=== PATIENT | female | born 1975 | race African-American/Black ===

== ENCOUNTER 2018-06-19 04:40 | Inpatient (IN) | payer MEDICARE, OTHER ==
[~2018-06-19] VITALS: Ht 160 cm; Wt 67.6 kg
[~2018-06-19 04:40] MED LIST: DIVA125T32 PO; PAXIL PO; TRAZODONE PO
[2018-06-19 05:33] LABS: BASOPHILS % (AUTO) 1.4 % (0.0-2.0); EOSINOPHILS % (AUTO) 2.1 % (1.0-6.0); HEMOGLOBIN 14.3 g/dL (12.0-16.0); LYMPHOCYTES % (AUTO) 34.1 % (22.0-44.0); MEAN CORPUSCULAR HEMOGLOBIN 31.3 pg (26.0-34.0); MEAN CORPUSCULAR VOLUME 92 fL (80-100); MONOCYTES # (AUTO) 0.9 K/uL (0.1-1.0); MONOCYTES % (AUTO) 15.5 % (2.0-9.0); NEUTROPHILS # (AUTO) 2.7 K/uL (1.8-7.7); NEUTROPHILS % (AUTO) 46.9 % (40.0-70.0); PLATELET COUNT (AUTO) 333 K/uL (150-450); RED BLOOD CELL COUNT(AUTO) 4.57 MIL/uL (4.00-5.20)
[2018-06-19 05:51] LABS: ANION GAP 3 mmol/L (8-16); CALCIUM, TOTAL 8.4 mg/dL (8.8-10.5); CARBON DIOXIDE 31 mmol/L (22-29); CHLORIDE 106 mmol/L (98-107); CREATININE 1.02 mg/dL (0.60-1.30); GLOMERULAR FILTR. RATE CALC > 60 mL/min (>60); GLUCOSE,RANDOM 82 mg/dL (70-110); POTASSIUM 3.6 mmol/L (3.5-5.1); SODIUM SERUM 140 mmol/L (136-145); UREA NITROGEN, BLOOD 8 mg/dL (7-18)
[2018-06-19 05:55] LABS: ALANINE AMINOTRANSFERASE 17 U/L (12-78); ALBUMIN 3.1 g/dL (3.4-5.0); ALKALINE PHOSPHATASE 86 U/L (46-116); ASPARTATE AMINOTRANSFERASE 16 U/L (15-37); BILIRUBIN,TOTAL 0.3 mg/dL (0.1-1.0); TOTAL PROTEIN, SERUM 6.7 g/dL (6.4-8.2)
[2018-06-19] MEDS ORDERED: ZOLPIDEM TARTRATE 10 MG TABLET PO PRN (06:15)
[2018-06-19] MEDS ORDERED: LORazepam 2 MG TABLET PO PRN (06:15)
[2018-06-19] MEDS ORDERED: HALOPERIDOL 5 MG TABLET PO PRN (06:15)
[2018-06-19 06:45] LABS: HEMOGLOBIN A1C 5.3 % (4.5-6.2)
[2018-06-19 06:58] LABS: CHOL/HDL RATIO 2.9 (3.9-5.7); CHOLESTEROL 166 mg/dL (131-200); FREE T4 (FREE THYROXINE) 1.13 ng/dL (0.76-1.46); HDL CHOLESTEROL 58 mg/dL (40-60); LDL CHOL (CALC.) 95 mg/dL (0-130); THYROID STIMULATING HORMONE 1.47 uIU/mL (0.36-3.74); TRIGLYCERIDES 65 mg/dL (15-150)
[2018-06-19 07:49] LABS: HCG,QUANTITATIVE < 1 mIU/mL (0-6)
[2018-06-19] MEDS ORDERED: MAG HYDROX/AL HYDROX/SIMETH ES 30 ML SUSPENSION UDCUP PO PRN (10:15)
[2018-06-19] MEDS ORDERED: PETROLATUM,WHITE 71 GM JELLY TP PRN (10:15)
[2018-06-19] MEDS ORDERED: LOPERAMIDE HCL 2 MG CAPSULE PO PRN (10:15)
[2018-06-19] MEDS ORDERED: ACETAMINOPHEN 325 MG TABLET PO PRN (10:15)
[2018-06-19] MEDS ORDERED: MAGNESIUM HYDROXIDE SUSPENSION 30 ML UDCUP PO PRN (10:15)
[2018-06-19] MEDS ORDERED: DOCUSATE SODIUM 100 MG CAPSULE PO PRN (10:15)
[2018-06-19] MEDS ORDERED: IBUPROFEN 400 MG TABLET PO PRN (10:15)
[2018-06-19 13:00] VITALS: BP 104/68
[2018-06-19 16:05] VITALS: BP 124/80
[2018-06-19] MEDS: DIVALPROEX SODIUM 500 MG DR TABLET PO SCH (16:33)
[2018-06-19] MEDS: TraZODone HCL 150 MG TABLET PO SCH (20:30)
[2018-06-20 03:20] VITALS: BP 120/81
[2018-06-20 08:30] VITALS: BP 122/61
[2018-06-20] MEDS: DIVALPROEX SODIUM 500 MG DR TABLET PO SCH ×2 (08:38→16:39)
[2018-06-20] MEDS: PARoxetine HCL 20 MG TABLET PO SCH (08:38)
[2018-06-20 16:12] VITALS: BP 118/81
[2018-06-20] MEDS: TraZODone HCL 150 MG TABLET PO SCH (20:30)
[2018-06-21 01:06] VITALS: BP 102/63
[2018-06-21 07:53] VITALS: BP 109/68
[2018-06-21] MEDS: DIVALPROEX SODIUM 500 MG DR TABLET PO SCH ×2 (08:18→16:34)
[2018-06-21] MEDS: PARoxetine HCL 20 MG TABLET PO SCH (08:18)
[2018-06-21 09:20] VITALS: BP 109/68
[2018-06-21 16:00] VITALS: BP 114/63
[2018-06-21] MEDS: TraZODone HCL 150 MG TABLET PO SCH (20:42)
[2018-06-22 01:55] VITALS: BP 118/68
[2018-06-22 08:21] VITALS: BP 117/77
[2018-06-22] MEDS: DIVALPROEX SODIUM 500 MG DR TABLET PO SCH ×3 (08:39→17:10)
[2018-06-22] MEDS: PARoxetine HCL 20 MG TABLET PO SCH (08:39)
[2018-06-22 16:30] VITALS: BP 110/64
[2018-06-22] MEDS: TraZODone HCL 150 MG TABLET PO SCH (21:18)
[2018-06-22] MEDS: OLANZapine 5 MG TABLET PO SCH (21:19)
[2018-06-23 01:16] VITALS: BP 111/77
[2018-06-23 08:13] VITALS: BP 120/68
[2018-06-23] MEDS: DIVALPROEX SODIUM 500 MG DR TABLET PO SCH ×2 (08:45→16:34)
[2018-06-23] MEDS: PARoxetine HCL 20 MG TABLET PO SCH (08:45)
[2018-06-23] MEDS: OLANZapine 5 MG TABLET PO SCH ×2 (08:45→20:37)
[2018-06-23 16:30] VITALS: BP 110/58
[2018-06-23] MEDS: TraZODone HCL 150 MG TABLET PO SCH (20:37)
[2018-06-24 08:11] VITALS: BP 110/62
[2018-06-24] MEDS: PARoxetine HCL 20 MG TABLET PO SCH (08:14)
[2018-06-24] MEDS: OLANZapine 5 MG TABLET PO SCH ×2 (08:14→20:39)
[2018-06-24] MEDS: DIVALPROEX SODIUM 500 MG DR TABLET PO SCH ×2 (08:14→16:38)
[2018-06-24 16:31] VITALS: BP 116/76
[2018-06-24] MEDS: TraZODone HCL 150 MG TABLET PO SCH (20:39)
[2018-06-25 00:12] VITALS: BP 102/71
[2018-06-25 08:34] VITALS: BP 104/66
[2018-06-25] MEDS: OLANZapine 5 MG TABLET PO SCH ×2 (08:42→20:16)
[2018-06-25] MEDS: PARoxetine HCL 20 MG TABLET PO SCH (08:42)
[2018-06-25] MEDS: DIVALPROEX SODIUM 500 MG DR TABLET PO SCH ×2 (08:42→16:47)
[2018-06-25 16:35] VITALS: BP 107/69
[2018-06-25] MEDS: TraZODone HCL 150 MG TABLET PO SCH (20:16)
[2018-06-26 02:00] VITALS: BP 113/74
[2018-06-26 08:36] VITALS: BP 106/69
[2018-06-26] MEDS: DIVALPROEX SODIUM 500 MG DR TABLET PO SCH ×2 (08:42→16:38)
[2018-06-26] MEDS: OLANZapine 5 MG TABLET PO SCH ×2 (08:42→20:24)
[2018-06-26] MEDS: PARoxetine HCL 20 MG TABLET PO SCH (08:42)
[2018-06-26 16:00] VITALS: BP 112/67
[2018-06-26] MEDS: TraZODone HCL 150 MG TABLET PO SCH (20:24)
[2018-06-27 02:28] VITALS: BP 114/72
[2018-06-27 08:23] VITALS: BP 114/66
[2018-06-27] MEDS: OLANZapine 5 MG TABLET PO SCH (08:38)
[2018-06-27] MEDS: DIVALPROEX SODIUM 500 MG DR TABLET PO SCH (08:38)
[2018-06-27] MEDS: PARoxetine HCL 20 MG TABLET PO SCH (08:38)
[2018-06-27] MEDS ORDERED: DIVA250T4 PO (09:03)
[2018-06-27] MEDS ORDERED: TRAZ-220 PO (09:05)
[2018-06-27] MEDS ORDERED: PARO20TA24 PO (09:06)
[2018-06-27] MEDS ORDERED: OLAN5TAB2 PO (09:06)
== END 2018-06-27 10:50 | disposition home or self-care (01) | DRG 885 ==
LOC: EMS 04:41 → B2X 06:00
PROVIDERS: ADMIT Psychiatry & Neurology Child & Adolescent Psychiatry; ATTEND Psychiatry & Neurology Child & Adolescent Psychiatry
DX: F33.1 Major depressive disorder, recurrent, moderate (principal); R45.851 Suicidal ideations; E83.51 Hypocalcemia; F10.10 Alcohol abuse, uncomplicated; F14.90 Cocaine use, unspecified, uncomplicated; F15.90 Other stimulant use, unspecified, uncomplicated; G47.00 Insomnia, unspecified; K21.9 Gastro-esophageal reflux disease without esophagitis; F20.9 Schizophrenia, unspecified; F41.9 Anxiety disorder, unspecified; Z59.0 Homelessness; Z79.899 Other long term (current) drug therapy; Z87.891 Personal history of nicotine dependence
CPT/HCPCS: 83036; 84439; 84443; G0480

== ENCOUNTER 2019-05-29 19:49 | Emergency (ER) | payer MEDICARE, OTHER ==
[~2019-05-29] VITALS: Ht 160 cm; Wt 86.4 kg
[~2019-05-29 19:49] MED LIST changes: -DIVA125T32 PO; +DIVA250T4 PO; +OLAN5TAB2 PO; +PARO20TA24 PO; -PAXIL PO; +TRAZ-220 PO; -TRAZODONE PO
[2019-05-30 02:00] VITALS: BP 110/78
== END 2019-05-30 02:30 | disposition home or self-care (01) ==
LOC: EMS 19:51
DX: B34.9 Viral infection, unspecified (principal); G93.3 Postviral and related fatigue syndromes; F31.9 Bipolar disorder, unspecified; F20.9 Schizophrenia, unspecified; F17.210 Nicotine dependence, cigarettes, uncomplicated; F12.90 Cannabis use, unspecified, uncomplicated; F14.90 Cocaine use, unspecified, uncomplicated
CPT/HCPCS: 99406

== ENCOUNTER 2019-11-05 01:51 | Inpatient (IN) | payer MEDICAID, MEDICARE, OTHER ==
[~2019-11-05] VITALS: Ht 160 cm; Wt 61.5 kg
[~2019-11-05 01:51] MED LIST changes: -TRAZ-220 PO; +TRAZ-257 PO
[2019-11-05] MEDS ORDERED: ZIPR40CA2 PO (01:58)
[2019-11-05] MEDS ORDERED: HALOPERIDOL 5 MG TABLET PO PRN (04:15)
[2019-11-05] MEDS ORDERED: LORazepam 2 MG TABLET PO PRN (04:15)
[2019-11-05] MEDS ORDERED: ZOLPIDEM TARTRATE 10 MG TABLET PO PRN (04:15)
[2019-11-05 06:17] VITALS: BP 107/61
[2019-11-05] MEDS ORDERED: MAG HYDROX/AL HYDROX/SIMETH ES 30 ML SUSPENSION UDCUP PO PRN (08:15)
[2019-11-05] MEDS ORDERED: DOCUSATE SODIUM 100 MG CAPSULE PO PRN (08:15)
[2019-11-05] MEDS ORDERED: ACETAMINOPHEN 325 MG TABLET PO PRN (08:15)
[2019-11-05] MEDS ORDERED: ALBUTEROL SULFATE HFA 90 MCG/PUFF 8 GM INHALER IH PRN (08:15)
[2019-11-05] MEDS ORDERED: ONDANSETRON HCL 4 MG TABLET PO PRN (08:15)
[2019-11-05] MEDS ORDERED: MAGNESIUM HYDROXIDE SUSPENSION 30 ML UDCUP PO PRN (08:15)
[2019-11-05] MEDS ORDERED: IBUPROFEN 400 MG TABLET PO PRN (08:15)
[2019-11-05] MEDS ORDERED: PETROLATUM,WHITE 28 GM JELLY TP PRN (08:15)
[2019-11-05] MEDS ORDERED: CloNIDine HCL 0.1 MG TABLET PO PRN (08:15)
[2019-11-05] MEDS ORDERED: LOPERAMIDE HCL 2 MG CAPSULE PO PRN (08:15)
[2019-11-05] MEDS ORDERED: NICOTINE 14 MG/24 HOUR PATCH TD PRN (08:15)
[2019-11-05] MEDS ORDERED: GuaiFENesin/D-METHORPHAN [SUGAR-FREE] 200-20MG/10 ML SYRUP UDCUP PO PRN (08:15)
[2019-11-05 08:31] VITALS: BP 105/54
[2019-11-05] MEDS ORDERED: DIVA-78 PO (14:10)
[2019-11-05] MEDS ORDERED: TRAZ150 PO (14:10)
[2019-11-05 16:39] VITALS: BP 107/51
[2019-11-05] MEDS: DIVALPROEX SODIUM 500 MG DR TABLET PO SCH (16:40)
[2019-11-05] MEDS: OLANZapine 5 MG TABLET PO SCH (16:40)
[2019-11-06 08:15] VITALS: BP 137/94
[2019-11-06] MEDS: OLANZapine 5 MG TABLET PO SCH ×2 (09:30→16:14)
[2019-11-06] MEDS: DIVALPROEX SODIUM 500 MG DR TABLET PO SCH ×2 (09:30→16:14)
[2019-11-06] MEDS: BuPROPion HCL XL 150 MG ER TABLET PO SCH (09:30)
[2019-11-06 17:18] VITALS: BP 98/67
[2019-11-07] MEDS: DIVALPROEX SODIUM 500 MG DR TABLET PO SCH ×2 (08:45→16:03)
[2019-11-07] MEDS: BuPROPion HCL XL 150 MG ER TABLET PO SCH (08:45)
[2019-11-07] MEDS: OLANZapine 5 MG TABLET PO SCH ×2 (08:45→16:03)
[2019-11-07 08:52] VITALS: BP 129/69
[2019-11-07 16:00] VITALS: BP 135/63
[2019-11-08 09:00] VITALS: BP 117/77
[2019-11-08] MEDS: BuPROPion HCL XL 150 MG ER TABLET PO SCH (09:30)
[2019-11-08] MEDS: DIVALPROEX SODIUM 500 MG DR TABLET PO SCH ×2 (09:30→16:13)
[2019-11-08] MEDS: OLANZapine 5 MG TABLET PO SCH ×2 (09:30→16:13)
[2019-11-08] MEDS ORDERED: BUPR75 PO (16:35)
== END 2019-11-08 18:00 | disposition home or self-care (01) | DRG 885 ==
LOC: EMS 01:53 → 3EI 04:05
PROVIDERS: ADMIT Psychiatry & Neurology Child & Adolescent Psychiatry; ATTEND Psychiatry & Neurology Child & Adolescent Psychiatry
DX: F20.9 Schizophrenia, unspecified (principal); R45.851 Suicidal ideations; F17.200 Nicotine dependence, unspecified, uncomplicated; F14.90 Cocaine use, unspecified, uncomplicated; F12.90 Cannabis use, unspecified, uncomplicated; F10.10 Alcohol abuse, uncomplicated; I95.9 Hypotension, unspecified; Z79.899 Other long term (current) drug therapy

== ENCOUNTER 2021-06-01 19:33 | Emergency (ER) | payer MEDICAID, OTHER ==
[~2021-06-01] VITALS: Ht 160 cm; Wt 81.8 kg
[~2021-06-01 19:33] MED LIST changes: +BUPR75 PO; +DIVA-112 PO; -DIVA250T4 PO; -OLAN5TAB2 PO; +OLAN5TAB52 PO; -PARO20TA24 PO; -TRAZ-257 PO
[2021-06-01] MEDS ORDERED: BUPR-93 PO (19:52)
[2021-06-01 21:51] LABS: BASOPHILS % (AUTO) 1.3 % (0.0-2.0); EOSINOPHILS % (AUTO) 2.1 % (1.0-6.0); HEMATOCRIT 39.7 % (36-46); HEMOGLOBIN 13.8 g/dL (12.0-16.0); LYMPHOCYTES # (AUTO) 1.4 K/uL (1.0-4.8); LYMPHOCYTES % (AUTO) 32.2 % (22.0-44.0); MEAN CORPUSCULAR HEMOGLOBIN 29.7 pg (26.0-34.0); MEAN CORPUSCULAR HGB CONC 34.8 G/dL (31.0-37.0); MEAN CORPUSCULAR VOLUME 85 fL (80-100); MONOCYTES # (AUTO) 0.6 K/uL (0.1-1.0); MONOCYTES % (AUTO) 13.7 % (2.0-9.0); NEUTROPHILS # (AUTO) 2.2 K/uL (1.8-7.7); NEUTROPHILS % (AUTO) 50.7 % (40.0-70.0); PLATELET COUNT (AUTO) 232 K/uL (150-450); RED BLOOD CELL COUNT(AUTO) 4.65 MIL/uL (4.00-5.20); RED CELL DISTRIBUTION WIDTH 14.7 % (11.5-14.5)
[2021-06-01 21:59] LABS: ANION GAP 10 mmol/L (8-16); CARBON DIOXIDE 29 mmol/L (22-29); CHLORIDE 105 mmol/L (98-107); CREATININE 1.03 mg/dL (0.60-1.30); GLOMERULAR FILTR. RATE CALC > 60 mL/min (>60); GLUCOSE,RANDOM 113 mg/dL (70-110); POTASSIUM 3.5 mmol/L (3.5-5.1); SODIUM SERUM 144 mmol/L (136-145); UREA NITROGEN, BLOOD 8 mg/dL (7-18)
[2021-06-01 22:05] LABS: ALANINE AMINOTRANSFERASE 14 U/L (12-78); ALBUMIN 2.9 g/dL (3.4-5.0); ALKALINE PHOSPHATASE 96 U/L (46-116); ASPARTATE AMINOTRANSFERASE 16 U/L (15-37); BILIRUBIN,TOTAL 0.1 mg/dL (0.1-1.0); TOTAL PROTEIN, SERUM 6.2 g/dL (6.4-8.2)
[2021-06-01 22:39] LABS: COVID AG,FIA SOURCE NASOPHARYNGEAL
[2021-06-01] MEDS ORDERED: ACETAMINOPHEN 500 MG TABLET PO ONE (23:45)
[2021-06-02 12:22] VITALS: BP 126/88
== END 2021-06-02 17:08 | disposition home or self-care (01) ==
LOC: EMS 19:34
DX: U07.1 COVID-19 (principal); F14.10 Cocaine abuse, uncomplicated; F32.9 Major depressive disorder, single episode, unspecified; F12.90 Cannabis use, unspecified, uncomplicated; F20.9 Schizophrenia, unspecified; Z59.00 Homelessness unspecified; Z87.891 Personal history of nicotine dependence
CPT/HCPCS: 36415; 80053; 84703; 85025; 87426; 93005; 99285; G0480; 99284

== ENCOUNTER 2021-06-25 07:18 | Inpatient (IN) | payer MEDICAID, OTHER ==
[~2021-06-25] VITALS: Ht 312.4 cm; Wt 79.4 kg
[~2021-06-25 07:18] MED LIST changes: +BUPR-93 PO; -BUPR75 PO
[2021-06-25 08:09] LABS: BASOPHILS % (AUTO) 0.8 % (0.0-2.0); EOSINOPHILS % (AUTO) 1.8 % (1.0-6.0); HEMATOCRIT 41.7 % (36-46); HEMOGLOBIN 14.3 g/dL (12.0-16.0); LYMPHOCYTES # (AUTO) 1.5 K/uL (1.0-4.8); LYMPHOCYTES % (AUTO) 27.6 % (22.0-44.0); MEAN CORPUSCULAR HEMOGLOBIN 29.9 pg (26.0-34.0); MEAN CORPUSCULAR HGB CONC 34.3 G/dL (31.0-37.0); MEAN CORPUSCULAR VOLUME 87 fL (80-100); MONOCYTES # (AUTO) 0.9 K/uL (0.1-1.0); MONOCYTES % (AUTO) 16.5 % (2.0-9.0); NEUTROPHILS # (AUTO) 2.8 K/uL (1.8-7.7); NEUTROPHILS % (AUTO) 53.3 % (40.0-70.0); PLATELET COUNT (AUTO) 279 K/uL (150-450); RED BLOOD CELL COUNT(AUTO) 4.79 MIL/uL (4.00-5.20); RED CELL DISTRIBUTION WIDTH 14.9 % (11.5-14.5)
[2021-06-25 08:17] LABS: AMPHET/METH SCREEN,URINE NEGATIVE (NEGATIVE); BARBITURATE SCREEN, URINE NEGATIVE (NEGATIVE); BENZODIAZEPINES SCREEN,URINE NEGATIVE (NEGATIVE); CANNABINOID SCREEN,URINE POSITIVE (NEGATIVE); COCAINE SCREEN,URINE POSITIVE (NEGATIVE); METHADONE SCREEN, URINE NEGATIVE (NEGATIVE); OPIATE SCREEN,URINE NEGATIVE (NEGATIVE)
[2021-06-25 08:29] LABS: ANION GAP 8 mmol/L (8-16); CALCIUM, TOTAL 8.4 mg/dL (8.8-10.5); CARBON DIOXIDE 29 mmol/L (22-29); CHLORIDE 106 mmol/L (98-107); CREATININE 0.95 mg/dL (0.60-1.30); GLOMERULAR FILTR. RATE CALC > 60 mL/min (>60); GLUCOSE,RANDOM 90 mg/dL (70-110); POTASSIUM 3.7 mmol/L (3.5-5.1); SODIUM SERUM 143 mmol/L (136-145); UREA NITROGEN, BLOOD 7 mg/dL (7-18)
[2021-06-25 08:34] LABS: ALANINE AMINOTRANSFERASE 16 U/L (12-78); ALBUMIN 3.1 g/dL (3.4-5.0); ALKALINE PHOSPHATASE 99 U/L (46-116); ASPARTATE AMINOTRANSFERASE 15 U/L (15-37); BILIRUBIN,TOTAL 0.4 mg/dL (0.1-1.0); TOTAL PROTEIN, SERUM 6.8 g/dL (6.4-8.2)
[2021-06-25 08:39] LABS: VALPROIC ACID < 3 mcg/mL (50-100)
[2021-06-25 08:40] LABS: COVID AG,FIA SOURCE NASOPHARYNGEAL
[2021-06-25 08:41] LABS: PHENCYCLIDINE SCREEN,URINE NEGATIVE (NEGATIVE)
[2021-06-25] MEDS ORDERED: LORazepam 2 MG TABLET PO PRN (09:45)
[2021-06-25] MEDS ORDERED: ZOLPIDEM TARTRATE 10 MG TABLET PO PRN (09:45)
[2021-06-25] MEDS ORDERED: HALOPERIDOL 5 MG TABLET PO PRN (09:45)
[2021-06-25 16:19] VITALS: BP 116/71
[2021-06-26 05:28] VITALS: BP 130/79
[2021-06-26] MEDS ORDERED: BENZOCAINE/MENTHOL LOZENGE PO PRN (06:15)
[2021-06-26] MEDS ORDERED: ACETAMINOPHEN 325 MG TABLET PO PRN (06:15)
[2021-06-26] MEDS ORDERED: BACITRACIN 28 GM OINTMENT TP PRN (06:15)
[2021-06-26] MEDS ORDERED: CloNIDine HCL 0.1 MG TABLET PO PRN (06:15)
[2021-06-26] MEDS ORDERED: IBUPROFEN 600 MG TABLET PO PRN (06:15)
[2021-06-26] MEDS ORDERED: MAGNESIUM HYDROXIDE SUSPENSION 30 ML UDCUP PO PRN (06:15)
[2021-06-26] MEDS ORDERED: ALBUTEROL SULFATE HFA 90 MCG/PUFF 8 GM INHALER IH PRN (06:15)
[2021-06-26] MEDS ORDERED: PETROLATUM,WHITE 28 GM JELLY TP PRN (06:15)
[2021-06-26] MEDS ORDERED: MAG HYDROX/AL HYDROX/SIMETH ES 30 ML SUSPENSION UDCUP PO PRN (06:15)
[2021-06-26] MEDS ORDERED: ONDANSETRON HCL 4 MG TABLET PO PRN (06:15)
[2021-06-26] MEDS ORDERED: LOPERAMIDE HCL 2 MG CAPSULE PO PRN (06:15)
[2021-06-26] MEDS ORDERED: DOCUSATE SODIUM 100 MG CAPSULE PO PRN (06:15)
[2021-06-26] MEDS ORDERED: OMEPRAZOLE 20 MG CAPSULE PO PRN (06:15)
[2021-06-26 08:24] VITALS: BP 132/75
[2021-06-26] MEDS ORDERED: DIVALPROEX SODIUM 500 MG DR TABLET PO SCH (21:00)
[2021-06-27 05:30] VITALS: BP 131/77
[2021-06-27 08:19] VITALS: BP 109/72
[2021-06-27] MEDS ORDERED: BuPROPion HCL XL 150 MG ER TABLET PO SCH (09:00)
[2021-06-27] MEDS ORDERED: DIVA-112 PO (14:28)
[2021-06-27] MEDS ORDERED: BUPR-49 PO (14:28)
== END 2021-06-27 15:05 | disposition home or self-care (01) | DRG 750 ==
LOC: EMS 07:20 → B2S 10:41
PROVIDERS: ADMIT Psychiatry & Neurology Psychiatry; ATTEND Psychiatry & Neurology Psychiatry
DX: F25.9 Schizoaffective disorder, unspecified (principal); R45.851 Suicidal ideations; F32.9 Major depressive disorder, single episode, unspecified; F14.90 Cocaine use, unspecified, uncomplicated; Z20.822 Contact with and (suspected) exposure to COVID-19; F41.9 Anxiety disorder, unspecified; G47.00 Insomnia, unspecified; K59.00 Constipation, unspecified; F17.210 Nicotine dependence, cigarettes, uncomplicated; Z79.899 Other long term (current) drug therapy; Z72.89 Other problems related to lifestyle
CPT/HCPCS: 80053; 80061; 80164; 85025; 99285; G0480

== ENCOUNTER 2021-06-28 13:56 | Inpatient (IN) | payer MEDICAID, OTHER ==
[~2021-06-28] VITALS: Ht 160 cm; Wt 76.3 kg
[~2021-06-28 13:56] MED LIST changes: +BUPR-49 PO; -OLAN5TAB52 PO
[2021-06-28 21:34] LABS: BASOPHILS % (AUTO) 0.7 % (0.0-2.0); EOSINOPHILS % (AUTO) 2.9 % (1.0-6.0); HEMATOCRIT 44.4 % (36-46); HEMOGLOBIN 14.7 g/dL (12.0-16.0); LYMPHOCYTES % (AUTO) 46.1 % (22.0-44.0); MEAN CORPUSCULAR HEMOGLOBIN 28.7 pg (26.0-34.0); MEAN CORPUSCULAR HGB CONC 33.2 G/dL (31.0-37.0); MEAN CORPUSCULAR VOLUME 86 fL (80-100); MONOCYTES # (AUTO) 0.9 K/uL (0.1-1.0); MONOCYTES % (AUTO) 21.6 % (2.0-9.0); NEUTROPHILS # (AUTO) 1.2 K/uL (1.8-7.7); NEUTROPHILS % (AUTO) 28.7 % (40.0-70.0); PLATELET COUNT (AUTO) 270 K/uL (150-450); RED BLOOD CELL COUNT(AUTO) 5.14 MIL/uL (4.00-5.20); RED CELL DISTRIBUTION WIDTH 14.6 % (11.5-14.5)
[2021-06-28] MEDS ORDERED: HALOPERIDOL 5 MG TABLET PO PRN (21:45)
[2021-06-28] MEDS ORDERED: ZOLPIDEM TARTRATE 10 MG TABLET PO PRN (21:45)
[2021-06-28] MEDS ORDERED: LORazepam 2 MG TABLET PO PRN (21:45)
[2021-06-28 21:46] LABS: ANION GAP 6 mmol/L (8-16); CALCIUM, TOTAL 9.1 mg/dL (8.8-10.5); CARBON DIOXIDE 31 mmol/L (22-29); CHLORIDE 104 mmol/L (98-107); CREATININE 1.11 mg/dL (0.60-1.30); GLOMERULAR FILTR. RATE CALC > 60 mL/min (>60); GLUCOSE,RANDOM 91 mg/dL (70-110); POTASSIUM 3.4 mmol/L (3.5-5.1); SODIUM SERUM 141 mmol/L (136-145); UREA NITROGEN, BLOOD 8 mg/dL (7-18)
[2021-06-28 21:51] LABS: ALANINE AMINOTRANSFERASE 15 U/L (12-78); ALBUMIN 3.3 g/dL (3.4-5.0); ALKALINE PHOSPHATASE 108 U/L (46-116); ASPARTATE AMINOTRANSFERASE 14 U/L (15-37); BILIRUBIN,TOTAL 0.3 mg/dL (0.1-1.0); TOTAL PROTEIN, SERUM 6.8 g/dL (6.4-8.2)
[2021-06-28 22:47] LABS: COVID AG,FIA SOURCE NASAL SWAB
[2021-06-29 00:45] LABS: CHOL/HDL RATIO 4.1 (3.9-5.7); CHOLESTEROL 192 mg/dL (131-200); HDL CHOLESTEROL 47 mg/dL (40-60); LDL CHOL (CALC.) 130 mg/dL (0-130); TRIGLYCERIDES 77 mg/dL (15-150)
[2021-06-29 20:39] LABS: APPEARANCE,URINE TURBID (CLEAR); BILIRUBIN,URINE NEGATIVE (NEGATIVE); GLUCOSE, URINE (UA) NEGATIVE (NEGATIVE); KETONES,URINE NEGATIVE (NEGATIVE); LEUKOCYTE ESTERASE ,URINE NEGATIVE (NEGATIVE); NITRATE,URINE NEGATIVE (NEGATIVE); OCCULT BLOOD,URINE NEGATIVE (NEGATIVE); PROTEIN,URINE NEGATIVE (NEGATIVE)
[2021-06-29 20:45] LABS: AMPHET/METH SCREEN,URINE NEGATIVE (NEGATIVE); BARBITURATE SCREEN, URINE NEGATIVE (NEGATIVE); BENZODIAZEPINES SCREEN,URINE NEGATIVE (NEGATIVE); CANNABINOID SCREEN,URINE POSITIVE (NEGATIVE); COCAINE SCREEN,URINE POSITIVE (NEGATIVE); METHADONE SCREEN, URINE NEGATIVE (NEGATIVE); OPIATE SCREEN,URINE NEGATIVE (NEGATIVE); PHENCYCLIDINE SCREEN,URINE NEGATIVE (NEGATIVE)
[2021-06-29] MEDS ORDERED: INFLUENZA VIRUS VACCINE QVS 2021-22 (6MO+)/PF 60 MCG/0.5 ML SYRINGE IM. ONE (22:00)
[2021-06-29 22:06] VITALS: BP 108/75
[2021-06-29] MEDS ORDERED: DENTURE ADHESIVE 68 GM CREAM DT PRN (23:30)
[2021-06-29 23:53] VITALS: BP 98/60
[2021-06-30 08:12] VITALS: BP 101/59
[2021-06-30] MEDS: BuPROPion HCL XL 150 MG ER TABLET PO SCH (12:27)
[2021-06-30 16:18] VITALS: BP 112/58
[2021-06-30] MEDS: DIVALPROEX SODIUM 500 MG DR TABLET PO SCH (20:29)
[2021-07-01 06:00] VITALS: BP 102/64
[2021-07-01] MEDS ORDERED: ALBUTEROL SULFATE HFA 90 MCG/PUFF 8 GM INHALER IH PRN (07:00)
[2021-07-01] MEDS ORDERED: BENZOCAINE/MENTHOL LOZENGE PO PRN (07:00)
[2021-07-01] MEDS ORDERED: MAGNESIUM HYDROXIDE SUSPENSION 30 ML UDCUP PO PRN (07:00)
[2021-07-01] MEDS ORDERED: PETROLATUM,WHITE 28 GM JELLY TP PRN (07:00)
[2021-07-01] MEDS ORDERED: CloNIDine HCL 0.1 MG TABLET PO PRN (07:00)
[2021-07-01] MEDS ORDERED: ACETAMINOPHEN 325 MG TABLET PO PRN (07:00)
[2021-07-01] MEDS ORDERED: DOCUSATE SODIUM 100 MG CAPSULE PO PRN (07:00)
[2021-07-01] MEDS ORDERED: ONDANSETRON HCL 4 MG TABLET PO PRN (07:00)
[2021-07-01] MEDS ORDERED: POTASSIUM CHLORIDE 20 MEQ ER TABLET PO ONE (07:00)
[2021-07-01] MEDS ORDERED: LOPERAMIDE HCL 2 MG CAPSULE PO PRN (07:00)
[2021-07-01] MEDS ORDERED: IBUPROFEN 600 MG TABLET PO PRN (07:00)
[2021-07-01] MEDS ORDERED: OMEPRAZOLE 20 MG CAPSULE PO PRN (07:00)
[2021-07-01] MEDS ORDERED: BACITRACIN 28 GM OINTMENT TP PRN (07:00)
[2021-07-01] MEDS ORDERED: MAG HYDROX/AL HYDROX/SIMETH ES 30 ML SUSPENSION UDCUP PO PRN (07:00)
[2021-07-01] MEDS: BuPROPion HCL XL 150 MG ER TABLET PO SCH (08:33)
[2021-07-01 08:43] VITALS: BP 96/62
[2021-07-01 16:23] VITALS: BP 110/73
[2021-07-01] MEDS: DIVALPROEX SODIUM 500 MG DR TABLET PO SCH (20:38)
[2021-07-02 05:29] VITALS: BP 104/62
[2021-07-02] MEDS: BuPROPion HCL XL 150 MG ER TABLET PO SCH (08:53)
[2021-07-02 09:44] VITALS: BP 108/70
[2021-07-02] MEDS ORDERED: DIVA-112 PO (13:40)
[2021-07-02] MEDS ORDERED: BUPR-49 PO (13:40)
== END 2021-07-02 14:45 | disposition home or self-care (01) | DRG 753 ==
LOC: EMS 14:30 → B2X 06-29 19:57
PROVIDERS: ADMIT Psychiatry & Neurology Psychiatry; ATTEND Psychiatry & Neurology Psychiatry
DX: F31.9 Bipolar disorder, unspecified (principal); R45.851 Suicidal ideations; F41.9 Anxiety disorder, unspecified; G47.00 Insomnia, unspecified; K59.00 Constipation, unspecified; F10.10 Alcohol abuse, uncomplicated; Z20.822 Contact with and (suspected) exposure to COVID-19; Z71.6 Tobacco abuse counseling; Z59.00 Homelessness unspecified; Z72.0 Tobacco use
CPT/HCPCS: 80053; 80061; 81003; 84132; 85025; 87081; 99285; G0480

== ENCOUNTER 2022-01-15 12:23 | Emergency (ER) | payer MEDICAID, OTHER ==
[~2022-01-15] VITALS: Ht 162.6 cm; Wt 65.9 kg
[~2022-01-15 12:23] MED LIST changes: -BUPR-93 PO
[2022-01-15] MEDS ORDERED: HydrOXYzine PAMOATE 25 MG CAPSULE PO ONE (13:30)
[2022-01-15 14:00] VITALS: BP 119/63
[2022-01-15] MEDS ORDERED: HYDR-4527 PO (14:07)
== END 2022-01-15 14:41 | disposition home or self-care (01) ==
LOC: EMS 12:23
DX: S80.862A Insect bite (nonvenomous), left lower leg, initial encounter (principal); S80.861A Insect bite (nonvenomous), right lower leg, initial encounter; F31.9 Bipolar disorder, unspecified; F20.9 Schizophrenia, unspecified; F17.210 Nicotine dependence, cigarettes, uncomplicated; F14.90 Cocaine use, unspecified, uncomplicated; Z98.890 Other specified postprocedural states; Z91.011 Allergy to milk products; W57.XXXA Bitten or stung by nonvenomous insect and other nonvenomous arthropods, initial encounter; Y93.89 Activity, other specified; Y92.89 Other specified places as the place of occurrence of the external cause; Y99.8 Other external cause status
CPT/HCPCS: 99283

== ENCOUNTER 2023-09-27 20:01 | Emergency (ER) | payer OTHER ==
[~2023-09-27] VITALS: Ht 160 cm; Wt 63.6 kg
[~2023-09-27 20:01] MED LIST changes: +HYDR-4527 PO
[2023-09-27 20:14] VITALS: TEMP 98.3
[2023-09-27 20:42] LABS: COVID AG,FIA SOURCE NASAL SWAB
[2023-09-27 20:57] LABS: RAPID GROUP A STREP NEGATIVE (NEGATIVE)
[2023-09-27 21:00] VITALS: BP 120/72; PULSE 90; RESP 19
[2023-09-27 21:20] LABS: INFLUENZA TYPE A NEGATIVE FOR TYPE A (NEGATIVE); INFLUENZA TYPE B NEGATIVE FOR TYPE B (NEGATIVE); SARS-COV2 (COVID) ANTIGEN,FIA Negative (Negative)
[2023-09-27] MEDS ORDERED: CEPH-558 PO (23:49)
[2023-09-27] MEDS ORDERED: SULF-261 PO (23:49)
[2023-09-27] MEDS: LIDOCAINE/PF 1% 2 ML VIAL IM ONE (23:58)
[2023-09-27] MEDS: CefTRIAXone SODIUM 1 GM/VIAL IM ONE (23:58)
== END 2023-09-28 03:00 | disposition home or self-care (01) ==
LOC: EMS 20:01
DX: F41.9 Anxiety disorder, unspecified (principal); F20.9 Schizophrenia, unspecified; F17.210 Nicotine dependence, cigarettes, uncomplicated; F14.90 Cocaine use, unspecified, uncomplicated; Z98.890 Other specified postprocedural states; Z91.011 Allergy to milk products; Z20.822 Contact with and (suspected) exposure to COVID-19
CPT/HCPCS: 99283; 87426; 87430; 87804; 96372; J0696; J3490